=== PATIENT | female | born 1950 | race African-American/Black ===

== ENCOUNTER 2017-04-11 15:35 | Outpatient (RCR) | payer MEDICARE, BC | END 2017-04-23 | disposition home or self-care (01) | LOC: PTY 15:35 | DX: M17.0 Bilateral primary osteoarthritis of knee (principal); M25.551 Pain in right hip; M79.1 Myalgia; S73.191S Other sprain of right hip, sequela | CPT/HCPCS: 97110; 97140; 97162; G8978; G8979 ==

== ENCOUNTER 2017-04-30 15:23 | Outpatient (RCR) | payer MEDICARE, BC | END 2017-05-24 | disposition home or self-care (01) | LOC: PTY 15:23 | DX: M17.0 Bilateral primary osteoarthritis of knee (principal); M25.551 Pain in right hip; M79.1 Myalgia; S73.191S Other sprain of right hip, sequela ==

== ENCOUNTER 2017-05-28 14:30 | Outpatient (RCR) | payer MEDICARE, BC | END 2017-06-23 | disposition home or self-care (01) | LOC: PTY 14:30 | DX: M17.0 Bilateral primary osteoarthritis of knee (principal); M25.551 Pain in right hip; M79.1 Myalgia; S73.191S Other sprain of right hip, sequela; M16.11 Unilateral primary osteoarthritis, right hip | CPT/HCPCS: 97032; 97110; 97140; G8978; G8979 ==

== ENCOUNTER 2017-06-26 15:20 | Outpatient (RCR) | payer MEDICARE, BC | END 2017-07-24 | disposition home or self-care (01) | LOC: PTY 15:20 | DX: M25.551 Pain in right hip (principal); M17.0 Bilateral primary osteoarthritis of knee ==